=== PATIENT | male | born 1935 | race Caucasian/White ===

== ENCOUNTER 2021-12-02 09:37 | Outpatient (CLI) | payer MEDICARE, OTHER | END 2021-12-02 09:38 | disposition home or self-care (01) | LOC: CSHCT 09:37 | PROVIDERS: ATTEND Surgery | DX: R10.13 Epigastric pain (principal); K80.20 Calculus of gallbladder without cholecystitis without obstruction; K86.89 Other specified diseases of pancreas; I70.0 Atherosclerosis of aorta; I25.10 Atherosclerotic heart disease of native coronary artery without angina pectoris | CPT/HCPCS: 74177; 82565 ==

== ENCOUNTER 2023-04-15 20:13 | Inpatient (IN) | payer MEDICARE, OTHER ==
[~2023-04-15 20:13] MED LIST: Iopamidol 300 61% 100 ML VIAL FS ONE
[2023-04-15 22:45] LABS: ALT (SGPT) 25 U/L (8-55); AST (SGOT) 47 U/L (5-34); Albumin 3.7 g/dL (3.4-4.8); Alkaline Phosphatase 88 U/L (40-110); Anion Gap 17 mmol/L (10-20); BUN (Urea Nitrogen) 62 mg/dL (8.4-25.7); Bilirubin, Total 1.5 mg/dL (0.2-1.2); Calc. Creatinine Clearance 0 mL/min (70-130); Calcium 9.1 mg/dL (7.8-10.44); Carbon Dioxide 20 mmol/L (23-31); Chloride 100 mmol/L (98-107); Estimated GFR 30; Globulin 2.7 g/dL (2.4-3.5); Glucose 106 mg/dL (83-110); Magnesium 2.4 mg/dL (1.6-2.6); Potassium 4.6 mmol/L (3.5-5.1); Protein, Total 6.4 g/dL (5.8-8.1); Sodium 132 mmol/L (136-145)
[2023-04-15 23:10] LABS: Hemoglobin 12.8 g/dL (13.5-17.5); MDiff Complete? YES; Mean Corpuscular HGB CONC 33.2 g/dL (32.0-36.0); Mean Corpuscular Hemoglobin 29.2 pg (27.0-33.0); Mean Corpuscular Volume 87.9 fl (81.2-95.1); Mean Platelet Volume 11.7 fl (7.4-10.4); Platelet Count 215 10x3/uL (150-450); RBC Distribution Width 14.1 % (11.5-14.5); Red Blood Cell (RBC) Count 4.38 10x6/uL (4.32-5.72); White Blood Cell (WBC) Count 32.1 10x3/uL (3.5-10.5)
[2023-04-15 23:48] LABS: Band 1 % (5-11); Lymphocytes 2 % (21-51); Monocytes 3 % (0-10); Neutrophil 94 % (42-75)
[2023-04-15 23:50] LABS: Ovalocytes SLIGHT = 2-5 cells (100X) (0-1/hpf); Platelet Adequacy Comment Appears Adequate
[2023-04-16] MEDS ORDERED: cefTRIAXone (ROCEPHIN) 1 GM VIAL ONE (00:38)
[2023-04-16 01:50] LABS: Bilirubin Neg (Negative); Blood, Urine 250 (Negative); Clarity Cloudy (Clear); Glucose, Urine (Dipstick) Normal (Negative); Ketone, Urine 5 mg/dL (Negative); Leukocyte 500 (Negative); Nitrite Positive (Negative); Protein, Urine (Dipstick) 500 mg/dl (Neg-Trace); Urobilinogen Normal mg/dL (Less than 2)
[2023-04-16] MEDS ORDERED: Senokot S 8.6-50 MG TAB PO PRN (01:53)
[2023-04-16] MEDS ORDERED: Acetaminophen 325 MG TAB PO PRN (01:53)
[2023-04-16] MEDS ORDERED: Calcium Carbonate 500 MG ChewTAB PO PRN (01:53)
[2023-04-16 01:56] LABS: Bacteria/HPF 1+ HPF (None Seen); CAUTI Indications for Culture Acute Hematuria; RBC/HPF Greater than 50 HPF (0-3); Squamous Epithelial 0-3 HPF (0-3)
[2023-04-16 01:58] LABS: Urine Culture Reflex Yes Yes
[2023-04-16 02:30] LABS: Hemoglobin 13.2 g/dL (13.5-17.5); MDiff Complete? YES; Mean Corpuscular HGB CONC 33.3 g/dL (32.0-36.0); Mean Corpuscular Hemoglobin 29.3 pg (27.0-33.0); Mean Corpuscular Volume 87.8 fl (81.2-95.1); Mean Platelet Volume 11.8 fl (7.4-10.4); Platelet Count 205 10x3/uL (150-450); RBC Distribution Width 14.2 % (11.5-14.5); Red Blood Cell (RBC) Count 4.51 10x6/uL (4.32-5.72); White Blood Cell (WBC) Count 32.7 10x3/uL (3.5-10.5)
[2023-04-16] MEDS ORDERED: Vancomycin HCl 1 GM in Sodium Chloride 0.9% 250 ML 250 ML IVPB SCH ×2 (02:30→07:00)
[2023-04-16 02:48] LABS: Anion Gap 17 mmol/L (10-20); BUN (Urea Nitrogen) 59 mg/dL (8.4-25.7); Calc. Creatinine Clearance 0 mL/min (70-130); Calcium 8.8 mg/dL (7.8-10.44); Carbon Dioxide 19 mmol/L (23-31); Chloride 101 mmol/L (98-107); Estimated GFR 35; Glucose 98 mg/dL (83-110); Potassium 4.3 mmol/L (3.5-5.1); Sodium 133 mmol/L (136-145)
[2023-04-16 05:30] LABS: Band 1 % (5-11); Lymphocytes 5 % (21-51); Monocytes 4 % (0-10); Neutrophil 90 % (42-75)
[2023-04-16 05:33] LABS: Ovalocytes SLIGHT = 2-5 cells (100X) (0-1/hpf); Platelet Adequacy Comment Appears Adequate
[2023-04-16 05:44] VITALS: BMI 29.6
[2023-04-16] MEDS: cefTRIAXone\\ROCEPHIN 2 GM in Sodium Chloride 0.9% 100 ML IVPB SCH ×2 (09:03→10:20)
[2023-04-16] MEDS: Polyethylene Glycol 3350 17 GM Packet PO SCH (09:04)
[2023-04-16] MEDS: Tamsulosin HCl 0.4 MG CAP PO SCH (09:04)
[2023-04-16] MEDS: Atorvastatin Calcium 40 MG TAB PO SCH ×2 (09:04→10:20)
[2023-04-16] MEDS: Senokot S 8.6-50 MG TAB PO SCH ×2 (09:04→20:14)
[2023-04-16] MEDS: Finasteride 5 MG TAB PO SCH (09:04)
[2023-04-16] MEDS ORDERED: Sodium Chloride 0.9% 1,000 ML IV SCH (16:15)
[2023-04-16] MEDS: Aspirin 81 mg Enteric Coated Tablet PO SCH (20:15)
[2023-04-17] MEDS: Atorvastatin Calcium 40 MG TAB PO SCH (09:10)
[2023-04-17] MEDS: cefTRIAXone\\ROCEPHIN 2 GM in Sodium Chloride 0.9% 100 ML IVPB SCH (09:10)
[2023-04-17] MEDS: Finasteride 5 MG TAB PO SCH (09:11)
[2023-04-17] MEDS: Polyethylene Glycol 3350 17 GM Packet PO SCH (09:11)
[2023-04-17] MEDS: Senokot S 8.6-50 MG TAB PO SCH ×2 (09:12→22:26)
[2023-04-17] MEDS: Tamsulosin HCl 0.4 MG CAP PO SCH (09:12)
[2023-04-17 09:34] LABS: Anion Gap 14 mmol/L (10-20); BUN (Urea Nitrogen) 43 mg/dL (8.4-25.7); Calc. Creatinine Clearance 75 mL/min (70-130); Calcium 8.5 mg/dL (7.8-10.44); Carbon Dioxide 22 mmol/L (23-31); Chloride 104 mmol/L (98-107); Estimated GFR 69; Glucose 91 mg/dL (83-110); Potassium 4.4 mmol/L (3.5-5.1); Sodium 136 mmol/L (136-145)
[2023-04-17 09:35] LABS: Hemoglobin 12.1 g/dL (13.5-17.5); Mean Corpuscular HGB CONC 33.5 g/dL (32.0-36.0); Mean Corpuscular Hemoglobin 29.6 pg (27.0-33.0); Mean Corpuscular Volume 88.3 fl (81.2-95.1); Mean Platelet Volume 11.6 fl (7.4-10.4); Platelet Count 186 10x3/uL (150-450); RBC Distribution Width 14.4 % (11.5-14.5); Red Blood Cell (RBC) Count 4.09 10x6/uL (4.32-5.72); White Blood Cell (WBC) Count 22.3 10x3/uL (3.5-10.5)
[2023-04-17 10:01] LABS: MDiff Complete? YES
[2023-04-17 10:03] LABS: Band 1 % (5-11); Lymphocytes 10 % (21-51); Monocytes 1 % (0-10); Neutrophil 88 % (42-75)
[2023-04-17 10:04] LABS: Platelet Adequacy Comment Appears Adequate; RBC Morph Comment Within Normal Limits
[2023-04-17] MEDS: Aspirin 81 mg Enteric Coated Tablet PO SCH (22:25)
[2023-04-18 04:13] LABS: #Eosinphils 0.1 10x3/uL (0.0-0.5); #Monocytes 0.9 10x3/uL (0.0-1.1); %Basophils 0.2 % (0.0-2.0); %Eosinophils 0.8 % (0.0-6.0); %Lymphocytes 9.3 % (18.0-47.0); %Monocytes 5.3 % (0.0-10.0); %Neutrophils 83.7 % (40.0-75.0); Hemoglobin 11.8 g/dL (13.5-17.5); Mean Corpuscular HGB CONC 32.6 g/dL (32.0-36.0); Mean Corpuscular Hemoglobin 28.9 pg (27.0-33.0); Mean Corpuscular Volume 88.7 fl (81.2-95.1); Mean Platelet Volume 11.8 fl (7.4-10.4); Platelet Count 193 10x3/uL (150-450); RBC Distribution Width 14.1 % (11.5-14.5); Red Blood Cell (RBC) Count 4.08 10x6/uL (4.32-5.72); White Blood Cell (WBC) Count 16.7 10x3/uL (3.5-10.5)
[2023-04-18 04:24] LABS: Anion Gap 12 mmol/L (10-20); BUN (Urea Nitrogen) 32 mg/dL (8.4-25.7); Calc. Creatinine Clearance 87 mL/min (70-130); Calcium 8.2 mg/dL (7.8-10.44); Carbon Dioxide 21 mmol/L (23-31); Chloride 106 mmol/L (98-107); Estimated GFR 83; Glucose 87 mg/dL (83-110); Sodium 135 mmol/L (136-145)
[2023-04-18] MEDS ORDERED: Cefepime 1 GM VIAL ONE ×3 (10:14)
[2023-04-18] MEDS: Tamsulosin HCl 0.4 MG CAP PO SCH (10:24)
[2023-04-18] MEDS: Cefepime 1 GM in Sodium Chloride 0.9% 100 ML IVPB SCH ×2 (10:25→23:01)
[2023-04-18] MEDS: Finasteride 5 MG TAB PO SCH (10:25)
[2023-04-18] MEDS: Senokot S 8.6-50 MG TAB PO SCH ×2 (10:25→23:01)
[2023-04-18] MEDS: Atorvastatin Calcium 40 MG TAB PO SCH (10:25)
[2023-04-18] MEDS: Polyethylene Glycol 3350 17 GM Packet PO SCH ×2 (10:26→10:31)
[2023-04-18] MEDS ORDERED: Meropenem 1 GM in Sodium Chloride 0.9% 100 ML IVPB SCH (14:00)
[2023-04-18] MEDS: Aspirin 81 mg Enteric Coated Tablet PO SCH (23:01)
[2023-04-19] MEDS ORDERED: Sodium Chloride 0.9% 100 ML ONE (08:39)
[2023-04-19] MEDS: Tamsulosin HCl 0.4 MG CAP PO SCH (08:46)
[2023-04-19] MEDS: Cefepime 1 GM in Sodium Chloride 0.9% 100 ML IVPB SCH ×2 (08:46→21:46)
[2023-04-19] MEDS: Finasteride 5 MG TAB PO SCH (08:46)
[2023-04-19] MEDS: Atorvastatin Calcium 40 MG TAB PO SCH (08:46)
[2023-04-19] MEDS: Polyethylene Glycol 3350 17 GM Packet PO SCH (08:48)
[2023-04-19] MEDS: Senokot S 8.6-50 MG TAB PO SCH ×2 (08:59→21:46)
[2023-04-19] MEDS: Aspirin 81 mg Enteric Coated Tablet PO SCH (21:46)
[2023-04-20] MEDS: Cefepime 1 GM in Sodium Chloride 0.9% 100 ML IVPB SCH (09:58)
[2023-04-20] MEDS: Finasteride 5 MG TAB PO SCH (10:00)
[2023-04-20] MEDS: Senokot S 8.6-50 MG TAB PO SCH (10:00)
[2023-04-20] MEDS: Tamsulosin HCl 0.4 MG CAP PO SCH (10:00)
[2023-04-20] MEDS: Polyethylene Glycol 3350 17 GM Packet PO SCH (10:01)
[2023-04-20] MEDS: Atorvastatin Calcium 40 MG TAB PO SCH (10:01)
[2023-04-20 13:26] VITALS: BP 137/67; TEMP 97.7
== END 2023-04-20 16:15 | DRG 698 ==
LOC: CSHERS 20:13 → CSHTELE 04-16 04:15
PROVIDERS: ADMIT Student in an Organized Health Care Education/Training Program; ATTEND Internal Medicine
PROC: 3E03329 Introduction of Other Anti-infective into Peripheral Vein, Percutaneous Approach (ICD-10-PCS; principal; 2023-04-16)
PROC: 05HY33Z Insertion of Infusion Device into Upper Vein, Percutaneous Approach (ICD-10-PCS; 2023-04-20)
DX: S37.39XA Other injury of urethra, initial encounter (principal); A41.52 Sepsis due to Pseudomonas; T83.511A Infection and inflammatory reaction due to indwelling urethral catheter, initial encounter; N39.0 Urinary tract infection, site not specified; F03.918 Unspecified dementia, unspecified severity, with other behavioral disturbance; I48.20 Chronic atrial fibrillation, unspecified; N17.9 Acute kidney failure, unspecified; I10 Essential (primary) hypertension; E78.5 Hyperlipidemia, unspecified; I25.10 Atherosclerotic heart disease of native coronary artery without angina pectoris; G47.33 Obstructive sleep apnea (adult) (pediatric); N40.0 Benign prostatic hyperplasia without lower urinary tract symptoms; G89.29 Other chronic pain; M19.90 Unspecified osteoarthritis, unspecified site; Z96.653 Presence of artificial knee joint, bilateral; Z96.649 Presence of unspecified artificial hip joint; X58.XXXA Exposure to other specified factors, initial encounter; Y83.8 Other surgical procedures as the cause of abnormal reaction of the patient, or of later complication, without mention of misadventure at the time of the procedure; Z66 Do not resuscitate; J44.9 Chronic obstructive pulmonary disease, unspecified; K21.9 Gastro-esophageal reflux disease without esophagitis; R33.9 Retention of urine, unspecified; Z98.890 Other specified postprocedural states; Z90.49 Acquired absence of other specified parts of digestive tract; Z79.01 Long term (current) use of anticoagulants; Z79.82 Long term (current) use of aspirin; Z79.899 Other long term (current) drug therapy; Y92.89 Other specified places as the place of occurrence of the external cause
CPT/HCPCS: 36415; 51702; 71045; 74177; 80048; 80053; 81001; 83605; 83735; 85025; 87040; 87077; 87086; 87186; 94760; 96360; 96361; 96374; J0692; J0696; J3370; J3490; J7050; Q9967

== ENCOUNTER 2023-06-04 05:43 | Emergency (ER) | payer MEDICARE, OTHER ==
[2023-06-04 06:38] LABS: White Blood Cell (WBC) Count 10.1 10x3/uL (3.5-10.5)
[2023-06-04 06:39] LABS: %Lymphocytes 16.9 % (18.0-47.0); %Neutrophils 74.2 % (40.0-75.0); Mean Corpuscular HGB CONC 31.6 g/dL (32.0-36.0); Mean Corpuscular Hemoglobin 29.1 pg (27.0-33.0); Mean Corpuscular Volume 91.9 fl (81.2-95.1); Mean Platelet Volume 10.5 fl (7.4-10.4); Platelet Count 162 10x3/uL (130-400); RBC Distribution Width 16.4 % (11.5-14.5); Red Blood Cell (RBC) Count 3.44 10x6/uL (4.32-5.72)
[2023-06-04 06:40] LABS: #Eosinphils 0.2 10x3/uL (0.0-0.5); #Monocytes 0.6 10x3/uL (0.0-1.1); #Neutrophils 7.5 10x3/uL (1.5-8.4); %Basophils 0.4 % (0.0-2.0); %Eosinophils 1.8 % (0.0-6.0); %Monocytes 6.3 % (0.0-10.0)
[2023-06-04 06:48] LABS: ALT (SGPT) 13 U/L (8-55); AST (SGOT) 17 U/L (5-34); Albumin 3.4 g/dL (3.4-4.8); Alkaline Phosphatase 99 U/L (40-110); Anion Gap 17 mmol/L (10-20); BUN (Urea Nitrogen) 19 mg/dL (8.4-25.7); Bilirubin, Total 1.1 mg/dL (0.2-1.2); Calc. Creatinine Clearance 0 mL/min (70-130); Calcium 8.6 mg/dL (7.8-10.44); Carbon Dioxide 21 mmol/L (23-31); Chloride 110 mmol/L (98-107); Estimated GFR 86; Globulin 2.7 g/dL (2.4-3.5); Glucose 97 mg/dL (83-110); Potassium 4.1 mmol/L (3.5-5.1); Protein, Total 6.1 g/dL (5.8-8.1); Sodium 144 mmol/L (136-145)
[2023-06-04 10:13] LABS: Bilirubin Neg (Negative); Blood, Urine 250 (Negative); Clarity Cloudy (Clear); Glucose, Urine (Dipstick) Normal (Negative); Ketone, Urine 5 mg/dL (Negative); Leukocyte 500 (Negative); Nitrite Positive (Negative); Protein, Urine (Dipstick) 100 mg/dl (Neg-Trace); Specific Gravity, Urine 1.015 (1.005-1.030); Urobilinogen Normal mg/dL (Less than 2); pH, Urine 6.5 (5.0-9.0)
[2023-06-04 10:28] LABS: Bacteria/HPF 1+ HPF (None Seen); CAUTI Indications for Culture Dysuria,urgency,freq; RBC/HPF Greater than 50 HPF (0-3); WBC/HPF Greater than 50 HPF (0-3)
[2023-06-04 10:29] LABS: Urine Culture Reflex Yes Yes
[2023-06-04] MEDS ORDERED: Cephalexin 250 MG CAP ONE (10:49)
== END 2023-06-04 12:48 ==
LOC: CSHERS 05:43
DX: T83.091A Other mechanical complication of indwelling urethral catheter, initial encounter (principal); N30.00 Acute cystitis without hematuria; J44.9 Chronic obstructive pulmonary disease, unspecified; K21.9 Gastro-esophageal reflux disease without esophagitis; E78.5 Hyperlipidemia, unspecified; I10 Essential (primary) hypertension; I48.91 Unspecified atrial fibrillation; Z79.82 Long term (current) use of aspirin; Z79.899 Other long term (current) drug therapy; Z79.01 Long term (current) use of anticoagulants
CPT/HCPCS: 51702; 74176; 80053; 81001; 85025; 87077; 87086; 87186